=== PATIENT | female | born 1995 | race Two or more races ===

== ENCOUNTER 2020-03-10 01:36 | Outpatient (CLI) | payer OTHER, SELFPAY ==
[2020-03-10 22:45] LABS: SARS-CoV-2 RNA PCR Negative
== END 2020-03-10 01:37 | disposition home or self-care (01) ==
LOC: ANHCOVIDDT 01:37
PROVIDERS: PCP Internal Medicine; Visit Provider Otolaryngology
DX: Z01.812 Encounter for preprocedural laboratory examination (principal); Z11.59 Encounter for screening for other viral diseases
CPT/HCPCS: 87635; C9803; U0003

== ENCOUNTER 2020-03-12 01:19 | Day surgery (SDC) | payer OTHER, SELFPAY ==
[2020-02-27 15:27] VITALS: BMI 23.6
--- NOTE | 2020-03-10 06:41 | PM.HPGS ---
History of Present Illness History of Present Illness Consent: Risks, benefits, and alternatives have been discussed and questions answered. Patient agrees to proceed with procedure. Chief complaint: Chronic Tonsillitis Narrative: Radha Lane is a 25 year old female has recurring episodes of tonsillitis and has admitted for an elective tonsillectomy Review of Systems Review of Systems: All systems reviewed & are unremarkable except as noted in HPI and below PMFSH Social History Social History Smoking status: Never smoker Alcohol intake: current Drinks per week: 3 Substance use: current Substance use type: marijuana Last use: 02/26/20 Spiritual care concerns: No Meds Home Medications and Allergies Home Medications Medication Instructions Recorded Confirmed Type No Home Medications 02/27/20 02/27/20 History Allergies Allergy/AdvReac Type Severity Reaction Status Date / Time Sulfa (Sulfonamide Allergy Unknown Rash Verified 02/27/20 15:28 Antibiotics) Assessment and Plan Additional Plan Plan is to do a tonsillectomy
[2020-03-12] VITALS (7 sets, daily range): BP systolic 99–133; BP diastolic 42–94; PULSE 61–81; RESP 14–20; TEMP 36.2–36.6; O2SAT 99–100
--- NOTE | 2020-03-12 06:04 | WPDHPUPDATE1 ---
History and Physical Update Update Date/Time: 03/12/20 06:04 History and Physical has been reviewed, including an updated exam of the patient. There are NO changes in the patient's condition. Risks, benefits, and alternatives have been discussed and questions answered. Patient agrees to proceed with procedure.
[2020-03-12] MEDS: LACTATED RINGERS 1,000 ML 30 ML IV CONT ×2 (06:50→08:10)
--- NOTE | 2020-03-12 07:13 | P.PNAN_ITS ---
Anes - Initial Pre Proc Eval Procedure: Operation Date: 03/12/20 08:15 Proposed Procedures p Tonsillectomy - Raúl Miranda MD Date/Time: 03/12/20 07:13 Surgeon: Raúl Miranda MD Pre Op Diagnosis: Chronic Tonsillitis Patient Data Age: 25 Gender: F Height: 5 ft 9 in Weight: 73 kg Last Vital Signs Temp 36.6 C 03/12/20 07:05 Pulse 61 03/12/20 07:05 Resp 16 03/12/20 07:05 BP 110/59 L 03/12/20 07:05 Pulse Ox 100 03/12/20 07:05 Allergies Allergy/AdvReac Type Severity Reaction Status Date / Time Sulfa (Sulfonamide Allergy Unknown Rash Verified 02/27/20 15:28 Antibiotics) Home Medications Medication Instructions Recorded Confirmed Type No Home Medications 02/27/20 02/27/20 History Patient hx anesthesia problems: none Family hx anesthesia problems: none [facility] Past Medical History Medical History Asthma Family History Family History Grandparent Hemorrhage Social History Social History Smoking status: Never smoker Alcohol intake: current Drinks per week: 3 Substance use: current Substance use type: marijuana Last use: 02/26/20 Spiritual care concerns: No Anes - Eval Final PreProcedure Day of Procedure 03/12/20 07:13 Patient weight: normal Heart: regular rate and rhythm Lungs: clear to auscultation Airway: Mallampati scale class II and other (bonded fron tooth, bridge) Neurological: alert and oriented Last oral intake: >/= 8 hours ASA classification: II Emergent: no Anesthetic plan: proceed Anesthesia type and monitoring: general ETT and standard monitoring Informed Consent: The patient's anesthetic plan and its attendant risks and benefits were discussed with the patient/family/POA. Questions were solicited and answers provided to the satisfaction of the patient/family/POA.
--- NOTE | 2020-03-12 08:06 | PM.PROC ---
Procedure Note - Detailed Date of procedure: 03/12/20 Pre-op diagnosis: Chronic Tonsillitis Chronic tonsillitis Post-op diagnosis: same Procedure performed: Tonsillectomy Description of procedure: Patient was prepped and draped in usual fashion after induction of anesthesia. The McIvor mouth gag was inserted. The tonsils were removed dissection technique hemostasis was obtained electrocautery. The mouth was inspected for bleeding. When stablized patient was awaken and brought to the recovery room in good condition. Surgeon: Raúl Miranda MD Estimated blood loss (mL): 15 Drains: No Packing: No Pathology: none sent Complications: No immediate complications Condition: stable Disposition: PACU Findings: Chronic tonsils
--- NOTE | 2020-03-12 09:59 | SUR.PHASEII ---
CORRECTION: FOR ASSESSMENT AT 0835, CHANGE UNAROUSABLE TO AROUSES TO NAME .
== END 2020-03-12 10:01 | disposition home or self-care (01) ==
PROVIDERS: PCP Internal Medicine; Visit Provider Otolaryngology
PROC: (CPT 42826; principal; 2020-03-12 08:15)
DX: J35.01 Chronic tonsillitis (principal); F12.90 Cannabis use, unspecified, uncomplicated
CPT/HCPCS: 42826; 88302; 88304; A9270; J0330; J1100; J2250; J2405; J2704; J3010; J7120

== ENCOUNTER 2023-07-05 14:11 | Emergency (ER) | payer OTHER, SELFPAY ==
--- NOTE | ~2023-07-05 | US_ITS ---
EXAMINATION: US OB transvaginal DATE: 07/05/2023 17:36 INDICATION: Cramping. . TECHNIQUE: Real-time transvaginal pelvic ultrasound was performed. COMPARISON: None. FINDINGS: The uterus measures 10.3 x 4.9 x 5.9 cm. There is an intrauterine gestational sac with mean diameter of 5 mm, which correlates with an estimated gestational age of 5 weeks and 2 days. A yolk sac is iden tified. No pole is visible, which is normal. The right ovary 4.4 x 1.9 x 2.6 cm. The left ovary 2.9 x 3.0 x 2.7 cm. There is physiologic free fluid in the pelvis. IMPRESSION: 1. Single intrauterine gestation with estimated gestational age of 5 weeks and 2 days. Reviewed, dictated and finalized at location [facility] [employer]
[2023-07-05 14:13] VITALS: BP 111/73; PULSE 84; RESP 20; TEMP 36.3; O2SAT 100
--- NOTE | 2023-07-05 15:44 | ED.PREGNANCY ---
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 She took home tests which were positive. Will soon establish with obGyn at [facility] in [place]. She has been having some white vaginal discharge but denies any vaginal bleeding. No nausea or vomiting. Sexually active with 2 male partners in the past 6 months. She is requesting STI testing. No vaginal pain or yellow/green discharge and no known/confirmed STI exposures. Requesting gonorrhea/chlamydia/trichomonas testing and also amenable and interested in syphillis and HIV testing. Has not taken pain medications for abdominal pain. Denies dysuria, hematuria, or urinary urgency/frequency. LBM was this morning and normal without diarrhea or constipation. She is concerned because she was smoking and consuming alcohol before she knew she was . Medication list also includes occasional albuteral inhaler Related Data Home Medications Medication Instructions Recorded Confirmed ergocalciferol (vitamin D2) 50 mcg 50 mcg PO DAILY 02/07/23 02/07/23 (2,000 unit) tablet Allergies Allergy/AdvReac Type Severity Reaction Status Date / Time Sulfa (Sulfonamide Allergy Unknown Rash Verified 02/07/23 08:07 Antibiotics) [facility] Past Medical History Medical History (Updated 07/06/23 @ 00:00 by Bryanna Wong) Asthma Vaginal discharge Surgical History Surgical History (Updated 07/06/23 @ 10:29 by Alicja Lowery MD) History of laryngoscopy Hx of tonsillectomy Family History Family History Grandparent Hemorrhage Social History Social History (Updated 02/07/23 @ 08:09 by Jeanie Charles MA) Smoking status: Smoker, status unknown (smokes marijuana ) Tobacco type: cigarettes Alcohol intake: current Drinks per week: 3 Substance use: current Substance use type: marijuana Last use: 02/26/20 Lack of Transportation: No Lack of Food: Never True Current Housing: I Have Housing Concerned About Future Housing: No Difficulty Paying Gas/Electric Bills: No Difficulty Paying for Meds: No Currently Unemployed: No Education: Bachelor's Degree Difficulty w/ Childcare or Family Care: No Living arrangements: with family Occupation/Education: occupation Gender identity (if verbalized by the patient): Female Sexual Orientation (if Verbalized by the Patient): Straight or Heterosexual Spiritual care concerns: No Exam Const: General: healthy appearing, no acute distress and alert; No confusion, diaphoretic or ill appearing Nutritional Appearance: well nourished Orientation/consciousness: patient oriented x3 Limitations: no limitations HENMT: Head: normal to inspection Other: gross auditory acuity intact Eyes: Direct Ophthalmoscopy: no photophobia Resp: Effort & Inspection: normal respiratory effort, not labored, no retractions, not tachypneic and no use of accessory muscles Cardio: Rate: regular rate, not bradycardic and not tachycardic GI: Inspection: non-distended GI Palp: Yes Soft to palpation, No Tenderness to palpation present (GI), No Guarding due to palpation present (GI), No Rigid due to palpation, No Palpable mass present and No Rebound tenderness present : General: Yes bladder normal to palpation Skin: General skin exam: normal color, no jaundice and no pallor Neuro: General: patient oriented x3 and moves all extremities Speech: normal speech Psych: Mental Status: mental status grossly normal Affect: normal affect, No Sad affect present and No Anxious affect present Attitude: cooperative Course Vital Signs Vital signs: Vital
[2023-07-05 15:52] LABS: Basophils Percent Auto 0.5 % (0.2-1.2); Eosinophils Percent Auto 0.7 % (0-4.4); Hematocrit 37.3 % (37.0-47.0); Hemoglobin 12.1 g/dL (12.0-15.0); Immature Granulocyte Absolute 0.03 K/mm3 (0.00-0.031); Immature Granulocyte Percent A 0.5 % (0-0.5); Lymphocytes Absolute Auto 1.18 K/mm3 (0.9-3.2); Lymphocytes Percent Auto 19.6 % (18.3-44.2); Mean Corpuscular HGB Conc 32.4 g/dl (32-36); Mean Corpuscular Hemoglobin 30.5 pg (26-34); Mean Platelet Volume 9.1 fl (7.4-10.4); Monocytes Absolute Auto 0.6 K/mm3 (0.1-0.6); Monocytes Percent Auto 9.7 % (2.6-8.5); Neutrophils Absolute Auto 4.2 K/mm3 (1.3-6.7); Platelet Count Result 248 k/mm3 (150-375); Red Blood Count 3.97 M/mm3 (4.2-5.4); Red Cell Distribution Width 12.3 % (11.5-14.5)
[2023-07-05 15:58] LABS: Appearance Urine Cloudy (Clear); Bacteria Urine 2+ /hpf; Bilirubin Urine Negative (Negative); Blood Urine 3+ (Negative); Color Urine Yellow (Yellow); Glucose Urine UA Negative (Negative); Ketones Urine Negative (Negative); Leukocyte Esterase Ur Trace LEU/UL (Negative); Nitrate Urine Negative (Negative); Non Pathogenic Casts 0-2; Protein Urine Negative (Negative); RBC Urine 21-50 /hpf (0-2); Specific Grav Ur 1.023 (1.001-1.035); Squamous Epithelial Cell Urine Many /hpf (Few); pH Urine 6.5 (5.0-9.0)
[2023-07-05] MEDS: ACETAMINOPHEN 325 MG TABLET 650 MG PO (15:58)
[2023-07-05 16:00] LABS: Add Urine Microscopic? YES
[2023-07-05 16:04] LABS: Alanine Aminotransferase 13 U/L (6-35); Albumin Level 4.7 g/dL (3.5-5.1); Alkaline Phosphatase 57 U/L (38-126); Anion Gap 6 mmol/L (8-16); Aspartate Amino Transferase 19 U/L (14-36); Blood Urea Nitrogen 11 mg/dL (7-17); Calcium 9.2 mg/dL (8.4-10.2); Carbon Dioxide 27 mmol/L (22-30); Chloride 103 mmol/L (98-107); Estimated CRCL calculation 110 ml/min; Estimated Glomerular Filt Rate > 60; Glucose 91 mg/dL (65-110); Potassium 3.5 mmol/L (3.4-5.0); Sodium 136 mmol/L (137-145)
[2023-07-05 16:55] LABS: HIV 1/2 Ab P24 Ag Result Negative (Negative)
[2023-07-05] MEDS: AMOXICILLIN 500 MG CAPSULE PO (17:30)
[2023-07-05 18:42] LABS: Trichomonas Vag PCR NOT DETECTED (NOT DETECTE)
[2023-07-05 19:17] VITALS: BP 107/64; PULSE 85; RESP 16; O2SAT 100
[2023-07-06 14:27] LABS: Rapid Plasma Reagin Non-Reactive (NonReactive)
[2023-07-07 17:35] LABS: Chlamydia trachomatis NOT DETECTED (NOT DETECTE); Neisseria gonorrhoeae PCR NOT DETECTED (NOT DETECTE)
== END 2023-07-05 19:33 | disposition home or self-care (01) ==
PROVIDERS: Emergency Provider Student in an Organized Health Care Education/Training Program; PCP Family Medicine
DX: O23.41 Unspecified infection of urinary tract in pregnancy, first trimester (principal); N39.0 Urinary tract infection, site not specified; O99.511 Diseases of the respiratory system complicating pregnancy, first trimester; J45.909 Unspecified asthma, uncomplicated; O99.331 Smoking (tobacco) complicating pregnancy, first trimester; F17.210 Nicotine dependence, cigarettes, uncomplicated; Z3A.01 Less than 8 weeks gestation of pregnancy
CPT/HCPCS: 36415; 76817; 80053; 81001; 84702; 85025; 86592; 86703; 87086; 87491; 87591; 87661; 99284; A9270; G0432